=== PATIENT | male | born 1980 | race Caucasian/White ===

== ENCOUNTER → 2020-07-12 | Outpatient (CLI) | payer OTHER ==
[~2020-07-12] MED LIST: AMOXICILLIN500 M1 PO; CLONIDINE PO; GLIPIZIDE; IBUPROFEN 800800 M1 PO; IBUPROFEN 800800 MG PO; LOPRESSOR; METFORMIN; PREDNISONE50 MG PO; TRIBENZOR 40-51 EACH; TYLENOL EX-STR500 M2 PO; ZOLOFT 50 MG TA50 M1
== END ==
LOC: M.LAB 14:52
PROVIDERS: ATTEND Orthopaedic Surgery
DX: Z01.812 Encounter for preprocedural laboratory examination (principal); Z20.822 Contact with and (suspected) exposure to COVID-19